=== PATIENT | female | born 1980 | race Caucasian/White ===

== ENCOUNTER 2020-10-27 18:51 | Emergency (ER) | payer OTHER ==
[~2020-10-27 18:51] MED LIST: BACTRIM DS TAB1 EACH PO; BENTYL10 MG PO; BUSPAR5 MG PO; CELEXA20 MG PO; NORCO 5-325 TA1 EACH PO; ONDANSETRON ODT4 MG PO; PRILOSEC20 MG PO; VOLTAREN **OUT75 MG PO; ZOFRAN4 MG PO
== END 2020-10-27 20:12 | disposition left against medical advice (07) ==
LOC: FER 18:51
DX: Z53.8 Procedure and treatment not carried out for other reasons (principal)

== ENCOUNTER 2020-11-10 04:29 | Emergency (ER) | payer OTHER ==
[2020-11-10 06:13] LABS: BILIRUBIN NEGATIVE (NEGATIVE); BLOOD NEGATIVE Ery/uL (NEGATIVE); CLARITY CLEAR (CLEAR); COLOR YELLOW (YELLOW); GLUCOSE (U) NORMAL (NORMAL); LEUKOCYTES NEGATIVE Leu/uL (NEGATIVE); NITRITE NEGATIVE (NEGATIVE); PROTEIN NEGATIVE (NEGATIVE); SPECIFIC GRAVITY <=1.005 (1.001-1.030); UROBILINOGEN 0.2 mg/dL (0.2-1.0); pH 6.5 (5.0-9.0)
[2020-11-10 06:14] LABS: BASOPHIL 0.9 % (0-2); EOSINOPHIL 2.1 % (0-5); HCT 39.9 % (37.0-47.0); HGB 13.5 g/dl (12.5-16.0); LYMPHOCYTE 26.3 % (15-48); MCH 30.3 pg (25.0-31.0); MCHC 33.8 g/dL (32.0-36.0); MCV 89.5 fL (78.0-100.0); MONOCYTE 5.4 % (0-12); MPV 9.9 fL (6.0-9.5); NEUTROPHIL 64.9 % (41-80); NRBC 0; PLT 295 K/uL (150-400); RBC 4.46 M/uL (4.20-5.40); RDW 13.2 % (11.5-14.0); WBC 8.5 K/uL (4.0-10.5)
[2020-11-10 07:00] LABS: ALBUMIN 3.6 g/dL (3.4-5.0); BILIRUBIN - TOTAL 0.3 mg/dL (0.2-1.0); BUN/CREAT RATIO (CALC) 16.2 RATIO; CREATININE 1.05 mg/dL (0.51-0.95); GLOBULIN (CALCULATION) 3.4 g/dL; MAGNESIUM 1.8 mg/dL (1.8-2.4); POTASSIUM 3.9 mmol/L (3.5-5.1)
== END 2020-11-10 08:40 | disposition home or self-care (01) ==
LOC: FER 04:29
PROVIDERS: Emergency Medicine
DX: R55 Syncope and collapse (principal); F41.9 Anxiety disorder, unspecified; F32.9 Major depressive disorder, single episode, unspecified; Z88.8 Allergy status to other drugs, medicaments and biological substances; Z79.899 Other long term (current) drug therapy
CPT/HCPCS: 36415; 70450; 71045; 80053; 81003; 82550; 83735; 84145; 84484; 85025; 93005; J1170; J2405

== ENCOUNTER 2020-12-07 14:08 | Emergency (ER) | payer OTHER ==
[2020-12-07] MEDS ORDERED: BROMFED DM COU473 ML PO (17:53)
[2020-12-07] MEDS ORDERED: VENTOLIN HFA18 GM INH (17:53)
[2020-12-07] MEDS ORDERED: VIBRAMYCIN100 MG PO (17:53)
[2020-12-07] MEDS ORDERED: TESSALON PERLE100 M1 PO (17:53)
[2020-12-07] MEDS ORDERED: NAPROXEN500 MG PO (17:53)
== END 2020-12-07 18:10 | disposition home or self-care (01) ==
LOC: FER 14:08
DX: J40 Bronchitis, not specified as acute or chronic (principal); J32.9 Chronic sinusitis, unspecified; F17.210 Nicotine dependence, cigarettes, uncomplicated; Z88.8 Allergy status to other drugs, medicaments and biological substances
CPT/HCPCS: 71046; 94640; 94664

== ENCOUNTER 2020-12-09 13:15 | Emergency (ER) | payer OTHER ==
[~2020-12-09 13:15] MED LIST changes: +BROMFED DM COU473 ML PO; +NAPROXEN500 MG PO; +TESSALON PERLE100 M1 PO; +VENTOLIN HFA18 GM INH; +VIBRAMYCIN100 MG PO
[2020-12-09] MEDS ORDERED: ZOFRAN4 M1 PO (14:50)
[2020-12-09] MEDS ORDERED: ZPAK PO (14:50)
== END 2020-12-09 15:09 | disposition home or self-care (01) ==
LOC: FER 13:15
DX: R11.2 Nausea with vomiting, unspecified (principal); Z88.8 Allergy status to other drugs, medicaments and biological substances
CPT/HCPCS: 99283; Q0162

== ENCOUNTER 2021-01-14 20:55 | Emergency (ER) | payer OTHER ==
[~2021-01-14 20:55] MED LIST changes: +ZOFRAN4 M1 PO; +ZPAK PO
== END 2021-01-14 22:21 | disposition left against medical advice (07) ==
LOC: FER 20:55
DX: O99.891 Other specified diseases and conditions complicating pregnancy (principal); R10.2 Pelvic and perineal pain; R30.0 Dysuria; Z53.8 Procedure and treatment not carried out for other reasons; Z3A.01 Less than 8 weeks gestation of pregnancy
CPT/HCPCS: 99283

== ENCOUNTER 2021-01-29 11:09 | Emergency (ER) | payer OTHER ==
[2021-01-29 11:35] LABS: BILIRUBIN 2+ mg/dL (NEGATIVE); BLOOD NEGATIVE Ery/uL (NEGATIVE); CLARITY CLEAR (CLEAR); COLOR YELLOW (YELLOW); GLUCOSE (U) NORMAL (NORMAL); LEUKOCYTES TRACE Leu/uL (NEGATIVE); NITRITE NEGATIVE (NEGATIVE); PROTEIN 1+ mg/dL (NEGATIVE); SPECIFIC GRAVITY >=1.030 (1.001-1.030); pH 5.5 (5.0-9.0)
[2021-01-29 11:43] LABS: BACTERIA 1+; CALCIUM OXALATE CRYSTALS LARGE
[2021-01-29] MEDS ORDERED: PYRIDIUM200 MG PO (12:07)
[2021-01-29] MEDS ORDERED: KEFLEX250 MG PO (12:07)
== END 2021-01-29 12:08 | disposition home or self-care (01) ==
LOC: FER 11:09
PROVIDERS: Emergency Medicine
DX: O23.42 Unspecified infection of urinary tract in pregnancy, second trimester (principal); O99.332 Smoking (tobacco) complicating pregnancy, second trimester; F17.210 Nicotine dependence, cigarettes, uncomplicated; Z3A.14 14 weeks gestation of pregnancy; Z88.8 Allergy status to other drugs, medicaments and biological substances
CPT/HCPCS: 81001; 99283

== ENCOUNTER 2021-02-18 13:48 | Emergency (ER) | payer OTHER ==
[~2021-02-18 13:48] MED LIST changes: +KEFLEX250 MG PO; +PYRIDIUM200 MG PO
[2021-02-18 16:45] LABS: BASOPHIL 0.3 % (0-2); EOSINOPHIL 0.9 % (0-5); HCT 33.5 % (37.0-47.0); HGB 11.3 g/dl (12.5-16.0); LYMPHOCYTE 17.8 % (15-48); MCH 30.7 pg (25.0-31.0); MCHC 33.7 g/dL (32.0-36.0); MONOCYTE 4.6 % (0-12); MPV 10.5 fL (6.0-9.5); NEUTROPHIL 75.9 % (41-80); NRBC 0; PLT 293 K/uL (150-400); RBC 3.68 M/uL (4.20-5.40); RDW 13.8 % (11.5-14.0); WBC 11.7 K/uL (4.0-10.5)
[2021-02-18 16:47] LABS: BILIRUBIN 1+ mg/dL (NEGATIVE); BLOOD NEGATIVE Ery/uL (NEGATIVE); CLARITY CLEAR (CLEAR); COLOR YELLOW (YELLOW); GLUCOSE (U) NORMAL (NORMAL); LEUKOCYTES NEGATIVE Leu/uL (NEGATIVE); NITRITE NEGATIVE (NEGATIVE); PROTEIN TRACE (LOW) mg/dL (NEGATIVE); SPECIFIC GRAVITY 1.025 (1.001-1.030)
[2021-02-18 16:57] LABS: BACTERIA TRACE; URINARY WBC RARE
[2021-02-18 16:58] LABS: CALCIUM OXALATE CRYSTALS TRACE; MUCOUS TRACE
[2021-02-18 17:20] LABS: BUN/CREAT RATIO (CALC) 9.4 RATIO; CREATININE 0.64 mg/dL (0.51-0.95); POTASSIUM 3.6 mmol/L (3.5-5.1)
== END 2021-02-18 18:26 | disposition home or self-care (01) ==
LOC: FER 13:48
PROVIDERS: Nurse Practitioner Family
DX: O99.891 Other specified diseases and conditions complicating pregnancy (principal); R10.9 Unspecified abdominal pain; O99.282 Endocrine, nutritional and metabolic diseases complicating pregnancy, second trimester; E86.0 Dehydration; Z98.890 Other specified postprocedural states; Z90.49 Acquired absence of other specified parts of digestive tract; Z88.8 Allergy status to other drugs, medicaments and biological substances; Z3A.17 17 weeks gestation of pregnancy
CPT/HCPCS: 36415; 76815; 80048; 81001; 84702; 85025; J7030

== ENCOUNTER 2021-07-09 17:23 | Emergency (ER) | payer OTHER | END 2021-07-09 22:00 | disposition home or self-care (01) | LOC: FER 17:23 | DX: G89.28 Other chronic postprocedural pain (principal); R10.32 Left lower quadrant pain; F17.210 Nicotine dependence, cigarettes, uncomplicated; Z88.2 Allergy status to sulfonamides; Z88.8 Allergy status to other drugs, medicaments and biological substances ==